=== PATIENT | male | born 1965 | race Caucasian/White ===

== ENCOUNTER 2025-01-15 07:55 | Outpatient (CLI) | payer OTHER, SELFPAY ==
--- NOTE | 2025-01-15 10:03 | W.ANESCHARGE ---
Anesthesia Charges Start Date/Time Anesthesia Start Date: 01/15/25 Anesthesia Start Time: 09:39 Stop Date/Time Anesthesia Stop Date: 01/15/25 Anesthesia Stop Time: 10:01 Coding CPT Codes CPT Codes: APPLE LWR INTST NDSC NOS - 34002 ([id number]) P2 - PATIENT W/MILD SYST DISEASE, QZ - NEUROLOGIST SVC W/O PORK CUTLET MAKER BY
== END 2025-01-15 07:56 | disposition home or self-care (01) ==
LOC: OP CLINIC 07:57
PROVIDERS: PCP Family Medicine; Visit Provider Surgery
DX: Z12.11 Encounter for screening for malignant neoplasm of colon (principal); D12.3 Benign neoplasm of transverse colon; Z86.0100 Personal history of colon polyps, unspecified
CPT/HCPCS: 00811; 45385; 88305; J2704